=== PATIENT | female | born 2000 | race Caucasian/White ===

== ENCOUNTER 2019-07-29 02:02 | Emergency (ER) | payer OTHER ==
[~2019-07-29] VITALS: Ht 162.6 cm; Wt 49.0 kg
--- NOTE | 2019-07-29 02:22 | NUR ---
pt up to rr with steady gait, provided pt urine cup for sample
--- NOTE | 2019-07-29 02:29 | NUR ---
urine sample sent. pt sitting up on gurney, monitors applied, call light within reach. erp at bedside for eval
[2019-07-29] MEDS ORDERED: SODIUM CHLORIDE FLUSH 10ML SYR IVF ONE (02:30)
[2019-07-29 02:48] LABS: BASOPHILS # (AUTO) 0.02 x10^3/uL (0-0.3); BASOPHILS % (AUTO) 0 % (0-1); EOSINOPHILS % (AUTO) 1 % (1-7); LYMPHOCYTES # (AUTO) 2.47 x10^3/uL (1-6.1); LYMPHOCYTES % (AUTO) 24 % (22-44); MD NO; MEAN CORPUSCULAR HEMOGLOBIN 30.4 pg (27.0-34.8); MEAN CORPUSCULAR HGB CONC 33.5 g/dL (32.4-35.8); MEAN CORPUSCULAR VOLUME 90.8 fL (80-100); MEAN PLATELET VOLUME 8.4 fL (7.4-10.4); MONOCYTES % (AUTO) 8 % (2-9); NEUTROPHILS % (AUTO) 67 % (42-75); PLATELET COUNT 299 x10^3/uL (130-400); RED BLOOD COUNT 4.75 x10^6/uL (3.82-5.3); RED CELL DISTRIBUTION WIDTH 12.6 % (9.6-15.2)
[2019-07-29 02:59] LABS: ALANINE AMINOTRANSFERASE 20 U/L (12-78); ALBUMIN 4.3 g/dL (3.4-5.0); ANION GAP 9 mmol/L (5-15); CHLORIDE 107 mmol/L (98-107)
[2019-07-29 03:04] LABS: ALKALINE PHOSPHATASE 55 U/L (45-117); BILIRUBIN,TOTAL 0.3 mg/dL (0.2-1.0); TOTAL PROTEIN 8.1 g/dL (6.4-8.2)
[2019-07-29 03:08] LABS: MICROSCOPIC INDICATED
--- NOTE | 2019-07-29 03:36 | NUR ---
pt to ultrasound
--- NOTE | 2019-07-29 04:00 | NUR ---
PT RESTING ON [facility], MONITORS IN PLACE, CALL LIGHT WITHIN REACH, HERACLIO ESQUEDA. AWAITING ULTRASOUND RESULT
[2019-07-29 05:06] VITALS: BP 109/65
== END 2019-07-29 05:26 | disposition home or self-care (01) ==
LOC: ED 05:00
DX: N30.00 Acute cystitis without hematuria (principal); R10.9 Unspecified abdominal pain; R10.30 Lower abdominal pain, unspecified
CPT/HCPCS: 36415; 76830; 80053; 81001; 83690; 84703; 85025; 87077; 87086; 87186; 99284